=== PATIENT | female | born 1965 | race Caucasian/White ===

== ENCOUNTER 2017-02-07 21:12 | Emergency (ER) | payer BC ==
--- NOTE | 2017-02-07 21:46 | ER PHYSICIAN DOCUMENTATION ---
Physician Documentation [facility] Name:Jennifer Johnson Age:52 yrs Sex:Female :1965 Arrival Date:02/07/2017 Time:21:12 Bed2 Private MD: Alek Kumari Disposition: 02/07/17 21:40 Discharged to Home/Self Care. Impression: Conjunctival Foreign Body. - Condition is Good. - Discharge Instructions: CONJUNCTIVAL FOREIGN BODY, Resolved. - Medical Reconciliation form form. - Follow up: Private Physician; When: 7 - 10 days; Reason: Recheck today's complaints, Continuance of care. - Problem is an ongoing problem. - Symptoms are resolved. HPI: 02/07 21:20 This 52 yrs old Female presents to ER via Walk In with complaints of Eye cd Problem. 21:20 The patient is experiencing foreign body sensation, to the right eye, caused by cd inverted right upper lateral lid eyelash hairs. The patient has had this problem before and has had to have the errant eyelashes plucked. She denies blurry vision or severe pain.. Onset: The symptom(s)/episode began/occurred acutely, today. Associated signs and symptoms:. Severity of symptoms: At their worst the symptoms were mild in the emergency department the symptoms are unchanged. The patient has experienced a previous episode, and the symptoms today are exactly the same. Historical: - Allergies: No known drug Allergies; - Home Meds: 1. Avapro Oral - PMHx: Hypertension; - PSHx: wrist; - Tetanus: > 10 years. - Ebola Screening: : Patient denies exposure to infectious person. Patient denies travel to an Ebola-affected area in the 21 days before illness onset. . - Immunization history: Flu Vaccine None. - Social history: Smoking status: Patient states was never smoker of tobacco. Patient/guardian denies using alcohol. - Code Status:: Full code. ROS: 21:30 Eyes: Positive for foreign body sensation, Negative for blurry vision, discharge, cd redness, visual disturbance. 21:30 All other systems are negative. Exam: 21:30 Visual Acuity: I have reviewed the nursing documentation. cd 21:30 Constitutional: The patient appears alert, awake, comfortable. 21:30 Eyes: Periorbital structures: appear normal, Pupils: equal, round, and reactive to light and accomodation, Extraocular movements: intact throughout, Conjunctiva: normal, Lids and lashes: 5 eyelash hairs on the upper lateral right eye were inverted and plucked out by me. She felt much better and all her symptoms resolved.. Vital Signs: 21:23 BP 144 / 85; Pulse 60; Resp 14; Temp 98.1(O); Pulse Ox 95% on R/A; Weight 65.77 kg; lb Height 5 ft. 4 in. (162.56 cm); Pain 0/10; 21:23 Body Mass Index 24.89 (65.77 kg, 162.56 cm) lb MDM: 21:39 Patient medically screened. cd 21:55 Data reviewed: vital signs, nurses notes, old medical records, and as a result, I will cd discharge patient. Counseling: I had a detailed discussion with the patient and/or guardian regarding: the historical points, exam findings, and any diagnostic results supporting the discharge/admit diagnosis, the need for outpatient follow up, for a recheck, with the patient's primary care provider, to return to the emergency department if symptoms worsen or persist or if there are any questions or concerns that arise at home. Response to treatment: the patient's symptoms have resolved after treatment. 21:55 Data interpreted: Pulse oximetry: on room air is 95 %. Interpretation: normal. cd Dispensed Medications: No medications were administered Signatures: Alek Smith MD MD cd Leonor Rios
--- NOTE | 2017-02-07 21:46 | ER NURSING DOCUMENTATION ---
Nurse's Notes [facility] Name:Jennifer Johnson Age:52 yrs Sex:Female :1965 Arrival Date:02/07/2017 Time:21:12 Bed2 Private MD: Diagnosis:Conjunctival Foreign Body Presentation: 02/07 21:21 Presenting complaint: Patient states: possible ingrown eyelash to right eye since lb yesterday. Transition of care: patient was not received from another setting of care. Notified ED Physician of Dr. Smith notified. 21:21 Acuity: BRITTNEY 4 lb 21:21 Method Of Arrival: Walk In lb Triage Assessment: 21:22 General: Appears uncomfortable, Behavior is appropriate for age, pleasant. Pain: Denies lb pain. EENT: Sclera/Cornea are clear in outer aspect of conjuctiva of right eye, inner aspect of conjuctiva of right eye, outer aspect of conjuctiva of left eye and inner aspect of conjunctiva of left eye Reports right eye irritation. Historical: - Allergies: No known drug Allergies; - Home Meds: 1. Avapro Oral - PMHx: Hypertension; - PSHx: wrist; - Tetanus: > 10 years. - Ebola Screening: : Patient denies exposure to infectious person. Patient denies travel to an Ebola-affected area in the 21 days before illness onset. . - Immunization history: Flu Vaccine None. - Social history: Smoking status: Patient states was never smoker of tobacco. Patient/guardian denies using alcohol. - Code Status:: Full code. Screenin:24 Infectious Disease Risk None. Abuse screen: Denies threats or abuse. Denies injuries lb from another. Nutritional screening: No deficits noted. Assessment: 21:24 See Triage Assessment done by same RN. General: Appears uncomfortable, Behavior is lb appropriate for age. Pain: Denies pain. Vital Signs: 21:23 BP 144 / 85; Pulse 60; Resp 14; Temp 98.1(O); Pulse Ox 95% on R/A; Weight 65.77 kg; lb Height 5 ft. 4 in. (162.56 cm); Pain 0/10; 21:23 Body Mass Index 24.89 (65.77 kg, 162.56 cm) lb ED Course: 21:12 Patient arrived in ED. em3 21:21 Leonor Rios is Primary Nurse. lb 21:22 Triage completed. lb 21:24 Valuables Remains with patient Patient has correct armband on for positive lb identification. 21:39 Alek Smith MD is Attending Physician. cd Administered Medications: No medications were administered Outcome: 21:40 Discharge ordered by . cd 21:45 Discharged to home ambulatory. lb 21:45 Condition: good 21:45 Discharge Assessment: Patient awake, alert and oriented x 3. No cognitive and/or functional deficits noted. Patient verbalized understanding of disposition instructions. 21:45 Instructed on discharge instructions, follow up and referral plans. 21:46 Patient left the ED. lb 02/08 11:32 Discharge F/U Call: Unable to reach: no answer rh Signatures: Alek Smith MD MD cd Meiklejohn, Eric em3 Hofsess, Rachel Leonor Rios lb
== END 2017-02-07 21:46 | disposition home or self-care (01) ==
LOC: ER 21:12
DX: T15.11XA Foreign body in conjunctival sac, right eye, initial encounter (principal); I10 Essential (primary) hypertension; Z79.899 Other long term (current) drug therapy
CPT/HCPCS: 99281